=== PATIENT | female | born 1935 | race Caucasian/White ===

== ENCOUNTER 2021-01-10 11:36 | Emergency (ER) | payer MEDICARE, SELFPAY ==
[2021-01-10 11:47] VITALS: BP 145/78; PULSE 86; RESP 16; TEMP 36.3; O2SAT 98
--- NOTE | 2021-01-10 12:12 | ED.FALL ---
HPI - Fall General Chief Complaint: Fall Stated Complaint: FALL/FACIAL INJURY Source: patient and RN notes reviewed Limitations: no limitations History of Present Illness HPI Narrative: The elderly patient- on several meds, not anticoagulants- presents with facial injury. Patient states a day ago she tripped and fell at home striking her left face. She complains of mild pain and large bruising periorbitally. No LOC, neck pain, diplopia, facial hypesthesia, subconjunctival blood, dental injury/malocclusion, blurred vision. Symptoms are mild, better with elevation Related Data Home Medications Medication Instructions Recorded Confirmed allopurinol 01/10/21 ezetimibe-simvastatin tablet 01/10/21 hydrochlorothiazide 01/10/21 levothyroxine 01/10/21 levothyroxine [Synthroid] 01/10/21 losartan 01/10/21 metformin mg 01/10/21 omeprazole 01/10/21 pregabalin 01/10/21 sertraline mg 01/10/21 Allergies Allergy/AdvReac Type Severity Reaction Status Date / Time No Known Allergies Allergy Verified 01/10/21 12:01 Review of Systems Review of Systems: Narrative: General/Constitutional: No weight loss,fever Eyes: N0: Redness,discharge Ears/Nose/Throat: No: Epistaxis,ear discharge Respiratory: Denies: Hemoptysis Gastrointestinal: No Vomiting, Bleeding-rectal Skin: No Lumps, eruption Neurologic: No Focal Weakness,Sz Hematologic: Denies: Petechiae/Purpura Psychiatric: No: Suicida ideationl All Other Systems: Reviewed and Negative PMFSH Social History Social History Gender identity (if verbalized by the patient): Female Comments At time of signature, agree with nursing past medical, surgical, social and family history. There is no relevant family history pertinent to the presenting complaint. Exam Narrative: Exam Narrative: General Appearance: Well nourished, No distress Skin: Warm, Dry; periorbital bruising without step-off,nor subconjunctiva blood EYE: PERRLA , Fcca-yhrecoat-ybyhnq normal), EOMI , Normal corneas- anterior chamber deep), Conjunctiva injection Ears: External ear normal, Auditory canal normal Nose: Normal nose, Nares clear Mouth/Throat: Normal appearing, Normal lips Neck: Supple, No adenopathy, no midline tenderness Respiratory: Airway patent, No respiratory distress Neurological: A&O x3, CN II-X intact Psychiatric: Normal mood, Normal affect Course Vital Signs Vital signs: Vital Signs Temperature 97.3 F L 01/10/21 11:47 Pulse Rate 86 01/10/21 11:47 Respiratory Rate 16 01/10/21 11:47 Blood Pressure 145/78 H 01/10/21 11:47 Pulse Oximetry 98 01/10/21 11:47 Temperature 97.3 F L 01/10/21 11:47 Pulse Rate 86 01/10/21 11:47 Respiratory Rate 16 01/10/21 11:47 Blood Pressure 145/78 H 01/10/21 11:47 Pulse Oximetry 98 01/10/21 11:47 Discharge Plan Discharge Clinical Impression: Encounter for post-traumatic wound check, History of ecchymosis Patient Disposition: Acute Care Hospital Condition: Stable Instructions: Facial Contusion (ED) Prescriptions: New tramadol 50 mg tablet 50 mg PO HS PRN (Reason: pain) Qty: 10 RF: 0 No Action levothyroxine 50 mcg tablet RF: 0 levothyroxine [Synthroid] 50 mcg tablet RF: 0 metformin 1,000 mg tablet RF: 0 losartan 25 mg tablet RF: 0 omeprazole 20 mg capsule,delayed release(DR/EC) RF: 0 allopurinol 300 mg tablet RF: 0 sertraline 50 mg tablet RF: 0 ezetimibe-simvastatin 10-20 mg tablet RF: 0 pregabalin 50 mg capsule RF: 0 hydrochlorothiazide 12.5 mg tablet RF: 0 Follow-up/Referrals: Paul,Zafar Cosby MD [Primary Care Provider] -
== END 2021-01-10 12:41 | disposition short-term general hospital (02) ==
PROVIDERS: Emergency Provider Emergency Medicine; PCP Internal Medicine
DX: S05.10XA Contusion of eyeball and orbital tissues, unspecified eye, initial encounter (principal); W01.0XXA Fall on same level from slipping, tripping and stumbling without subsequent striking against object, initial encounter; E78.00 Pure hypercholesterolemia, unspecified; I10 Essential (primary) hypertension; E11.9 Type 2 diabetes mellitus without complications
CPT/HCPCS: 99213; G0463

== ENCOUNTER 2021-01-10 13:16 | Emergency (ER) | payer MEDICARE, SELFPAY ==
--- NOTE | ~2021-01-10 | CT_ITS ---
EXAMINATION: CT facial & cervical spine wo EXAM DATE: 01/10/2021 13:43 INDICATION: Fall with head injury . Left periorbital hematoma. TECHNIQUE: Spiral CT of the facial bones was acquired in the axial plane. Coronal reformatted images were also reviewed. Spiral CT of the cervical spine was performed without contrast. Axial images we re reviewed. Coronal and sagittal reformatted images were also reviewed. The dose-length product (DL P) for this examination was 320.39 mGy-cm. The exposure was tailored according to patient size, and iterative reconstruction (ASIR) was used as additional dose reduction technique. There is no prior s tudy for comparison. FINDINGS: FACIAL CT: There are no displaced acute nasal bone fractures. The mandible, sinuses and orbits are i ntact. The orbits, globes and extraocular muscles are unremarkable. Cataract surgery. The visualize d sinuses and mastoid air cells are well aerated. There is left periorbital swelling and small righ t frontal scalp swelling. Moderate rightward nasal septal deviation. There is large right maxillary sinus window procedure. Right maxillary sinus wall thickening indicating history of chronic sinusitis . CERVICAL CT: There is no evidence of acute cervical fracture. The odontoid process is intact. Pre-d ens space is normal. Prevertebral soft tissue is normal. There are no soft tissue abnormalities ella ntified. There is no disc space widening or traumatic vertebral body subluxation suspected. There i s severe cervical facet arthropathy. Moderate to severe lower cervical disc disease. Moderate to abraham re right neural foraminal stenosis at mid and lower cervical levels. Right shoulder arthroplasty hard he. A detailed level by level evaluation of spondylosis can be added as addendum if requested. IMPRESSION: 1. No acute facial or cervical fracture. 2. Left periorbital swelling. 3. Cervical spondylosis. Reviewed, dictated and finalized at location B.
--- NOTE | ~2021-01-10 | CT_ITS ---
EXAMINATION: CT brain wo con DATE: 01/10/2021 13:43 INDICATION: Head injury. TECHNIQUE: Computed tomography (CT) of the head was performed without intravenous contrast. The mA wa s adjusted according to patient size. Iterative reconstruction technique was employed. The dose-lengt h product was 529.67 mGy-cm. COMPARISON: None FINDINGS: There are scattered areas of low attenuation in the cerebral white matter. There is no intr acranial hemorrhage, acute infarction, or abnormal intracranial mass lesion. The ventricles are elsa l in size. There are likely changes of ocular lens replacement surgeries. There is left periorbital s oft tissue swelling. There is mild mucosal thickening in the paranasal sinuses. There are surgical ch anges of the paranasal sinuses. The mastoid air cells are normal. IMPRESSION: 1. Moderate nonspecific cerebral white matter disease, which likely represents chronic small vessel i schemic disease. Reviewed, dictated and finalized at location A. IMPRESSION: 1. Moderate nonspecific cerebral white matter disease, which likely represents chronic small vessel ischemic disease.
[2021-01-10 13:55] VITALS: BP 110/90; PULSE 86; RESP 16; TEMP 36.5; O2SAT 97
--- NOTE | 2021-01-10 16:16 | ED.FALL ---
HPI - Fall General Chief Complaint: Fall Stated Complaint: fall yesterday, facial bruising Time Seen by Provider: 01/10/21 16:04 Source: patient and family Mode of arrival: ambulatory Limitations: no limitations History of Present Illness HPI Narrative: 85-year-old with a history of hypertension, diabetes, hypothyroidism, balance issues was brought in by family with complaints of fall yesterday. Patient states that she was pulling a drawer accidentally lost her balance and hit her left side of her face against a drawer. She denies any loss of consciousness. Complains of minor headache. No history of nausea or vomiting. Denies any visual problems. complaint: fall Onset (ago): day(s) (1) Fall from: standing Fall witnessed: yes, by family Place fall occurred: home Loss of consciousness: none Symptoms prior to fall: none Context: other (Has balance issues) Location of injury: face Severity: mild Quality: dull Associated symptoms (after fall): headache Related Data Home Medications Medication Instructions Recorded Confirmed allopurinol 01/10/21 ezetimibe-simvastatin tablet 01/10/21 hydrochlorothiazide 01/10/21 levothyroxine 01/10/21 levothyroxine [Synthroid] 01/10/21 losartan 01/10/21 metformin mg 01/10/21 omeprazole 01/10/21 pregabalin 01/10/21 sertraline mg 01/10/21 Allergies Allergy/AdvReac Type Severity Reaction Status Date / Time No Known Allergies Allergy Verified 01/10/21 16:00 Review of Systems Review of Systems: All systems reviewed & are unremarkable except as noted in HPI and below Constitutional: Constitutional: Reports no additional constitutional complaints Eyes: Eyes: Reports as per HPI ENT: Reports as per HPI Cardiovascular: Cardiovascular: Reports no additional cardiovascular complaints Respiratory: Respiratory: Reports no additional respiratory complaints Gastrointestinal: Gastrointestinal: Reports no additional gastrointestinal complaints Musculoskeletal: Musculoskeletal: Reports no additional musculoskeletal complaints Neurologic: Reports system reviewed and no additional complaints, except as documented PMFSH Social History Social History Gender identity (if verbalized by the patient): Female Exam Narrative: Exam Narrative: GENERAL: Well-appearing, well-nourished, and in no acute distress. HEAD: Normocephalic, atraumatic. EYES: PERRLA and EOMI. left periorbital hematoma ENT: Nares clear, no rhinorrhea or epistaxis. Mucous membranes moist. NECK: Supple. CHEST: Clear to auscultation. No respiratory distress. HEART: Regular rate and rhythm. No murmur heard. Normal peripheral pulses. EXTREMITIES: Normal range of motion. No edema. SKIN: Warm, dry, no rash. NEURO: No focal deficits. Alert and oriented x3. PSYCH: Normal mood and affect. Course Course Emergency Course: Informed patient about her CT findings. Advised to continue her home medication, use cane or walker all the time. Follow-up with her primary doctor as needed. Vital Signs Vital signs: Vital Signs Temperature 36.5 C 01/10/21 13:55 Pulse Rate 86 01/10/21 13:55 Respiratory Rate 16 01/10/21 13:55 Blood Pressure 110/90 01/10/21 13:55 Pulse Oximetry 97 01/10/21 13:55 Temperature 36.5 C 01/10/21 13:55 Pulse Rate 86 01/10/21 13:55 Respiratory Rate 16 01/10/21 13:55 Blood Pressure 110/90 01/10/21 13:55 Pulse Oximetry 97 01/10/21 13:55 MDM - Fall Imaging Data Radiologist's impression: ITS Impressions Head CT 01/10/21 13:49 IMPRESSION: 1. Moderate nonspecific cerebral white matter disease, which likely represents chronic small vessel ischemic disease. Head/Cervical Spine/Facial Bones CT 01/10/21 14:02 IMPRESSION: 1. No acute facial or cervical fracture. 2. Left periorbital swelling. 3. Cervical spondylosis. Discharge Plan Discharge Clinical Impression: Facia
== END 2021-01-10 16:36 | disposition home or self-care (01) ==
LOC: ANHED 16:22
PROVIDERS: Emergency Provider Family Medicine; PCP Internal Medicine
DX: S00.12XA Contusion of left eyelid and periocular area, initial encounter (principal); I10 Essential (primary) hypertension; E11.9 Type 2 diabetes mellitus without complications; E03.9 Hypothyroidism, unspecified; Z79.84 Long term (current) use of oral hypoglycemic drugs; R90.82 White matter disease, unspecified; M47.812 Spondylosis without myelopathy or radiculopathy, cervical region; W01.190A Fall on same level from slipping, tripping and stumbling with subsequent striking against furniture, initial encounter
CPT/HCPCS: 70450; 70486; 72125; 99284